=== PATIENT | male | born 1985 | race Caucasian/White ===

== ENCOUNTER 2024-07-22 06:52 | Day surgery (SDC) | payer OTHER ==
[~2024-07-22] VITALS: Ht 172.7 cm; Wt 75.0 kg
[2024-07-22] VITALS (226 sets, daily range): BP systolic 84–171; BP diastolic 54–109
--- NOTE | 2024-07-22 07:20 | NUR ---
Patient arrived to the ANR suite, identification and demographics confirmed. Patient to room 9, AAO, ambulatory, vitals obtained, ID/allergy/fall bands placed, changed into hospital gown, DC hose, and non-slip socks. Procedure and timeline explained for treatment and discharge. All questions answered and the patient presents no concerns at this time.
[2024-07-22] MEDS ORDERED: LACTATED RINGER'S 1,000 ML IV PRN ×3 (07:30→19:00)
[2024-07-22] MEDS ORDERED: PANTOPRAZOLE SODIUM Sesquihydr 40 MG/TAB PO PRN (07:30)
[2024-07-22] MEDS ORDERED: diazePAM 5 MG/TAB PO PRN ×2 (07:30→08:30)
[2024-07-22] MEDS ORDERED: FAMOTIDINE 20 MG/TAB PO PRN (07:30)
[2024-07-22] MEDS ORDERED: SCOPOLAMINE 1.5 MG DIS TD PRN (07:30)
[2024-07-22] MEDS ORDERED: CYANOCOBALAMIN 500 MCG/TAB ( B12) PO PRN (07:30)
[2024-07-22] MEDS ORDERED: cloNIDine HCL 0.1 MG/TAB PO PRN (07:30)
[2024-07-22] MEDS ORDERED: ALBUTEROL SULFATE 2.5 MG VIAL IN PRN (07:30)
--- NOTE | 2024-07-22 07:43 | NUR ---
Dr. Leo telephoned with patient intake information including usage, dose, last dose/time taken and initial vital signs. Patient history and allergies reviewed with MD. Orders received for 10 mg PO Valium and 0.1 mg PO Clonidine now. Will reassess per protocol in 1.5 hours and update MD with assessment and vitals.
[2024-07-22] MEDS ORDERED: ASCORBIC ACID 4,000 MG in SODIUM CHLORIDE 0.9% 1,000 ML IV SCH (08:00)
[2024-07-22 08:29] LABS: BASO% 0.2 % (0-3); EOS% 4.4 % (0-8); HEMOGLOBIN 12.2 g/dl (14.0-18.0); IMMATURE GRANULOCYTES 0.2 % (0.0-5.0); LYMPH% 44.3 % (15-41); MEAN CELL VOLUME 90.9 fL CALC (80.0-100.0); MONO% 4.6 % (2-13); NEUT# 4.2 thou/uL (1.82-7.42); NEUT% 46.3 % (42-76); RED BLOOD COUNT 4.07 mill/uL (4.70-6.10); RED CELL DISTRI WIDTH 12.4 % (11.5-15.5)
[2024-07-22 08:58] LABS: ALBUMIN 4.1 g/dL (3.2-5.0); BILIRUBIN, TOTAL 0.5 mg/dL (0.2-1.3); CREATININE 0.7 mg/dL (0.7-1.3); POTASSIUM 3.8 mmol/l (3.5-5.1); TOTAL PROTEIN 6.5 g/dL (6.3-8.2)
--- NOTE | 2024-07-22 09:37 | NUR ---
Patient resting comfortably in bed. Easily aroused, maintains focus, and drifts back to sleep. No signs of active withdrawal or distress noted at this time. Continuous SPO2, rhythm, and respiratory monitoring initiated. IVF @ 250 mL/HR, room air, VSS.
[2024-07-22] MEDS ORDERED: LIDOCAINE HCL 1% (10MG/ML) 100 MG/10 ML MDV IV PRN (09:55)
[2024-07-22] MEDS ORDERED: MIDAZOLAM HCL 2 MG/2 ML VIAL IV PRN (09:55)
[2024-07-22] MEDS ORDERED: diazePAM 5 MG/TAB VT PRN (09:55)
[2024-07-22] MEDS ORDERED: MAGNESIUM SULFATE HEPTAHYDRATE 100 ML IV PRN (09:55)
[2024-07-22] MEDS ORDERED: cloNIDine HCL 0.1 MG/TAB VT PRN (09:55)
[2024-07-22] MEDS ORDERED: LIDOCAINE HCL 1% (10MG/ML) 100 MG/10 ML MDV VT PRN ×2 (09:55)
[2024-07-22] MEDS ORDERED: cloNIDine HYDROCHLORIDE 100 MCG/ML 10 ML INJ IV PRN (09:55)
[2024-07-22] MEDS ORDERED: DiphenhydrAMINE HCL 50 MG/ML SDV IV PRN (09:55)
[2024-07-22] MEDS ORDERED: PROPOFOL 10 MG/ML 100ML VIAL IV PRN (09:55)
[2024-07-22] MEDS ORDERED: PROPOFOL 100 ML IV PRN (09:55)
[2024-07-22] MEDS ORDERED: SUCCINYLCHOLINE CHLORIDE 20 MG/ML 10ML VIAL IV PRN (09:55)
[2024-07-22] MEDS ORDERED: ROCURONIUM BROMIDE 10 MG/ML 5ML VIAL IV PRN (09:55)
[2024-07-22] MEDS ORDERED: STERILE WATER FOR IRRIGATION 1,000 ML BTL IR PRN (09:55)
[2024-07-22] MEDS ORDERED: ONDANSETRON HCl 4 MG/2 ML SDV IV PRN ×3 (09:55→19:00)
[2024-07-22] MEDS ORDERED: POTASSIUM CHLORIDE 20 MEQ/100 ML BAG IV PRN (09:55)
[2024-07-22] MEDS ORDERED: OCTREOTIDE ACETATE 100 MCG/VIAL SDV SC PRN (09:55)
[2024-07-22] MEDS ORDERED: NALTREXONE HCL 50 MG/TAB VT PRN (09:55)
[2024-07-22] MEDS ORDERED: THIAMINE HCL 100 MG/ML 2ML VIAL IV PRN (09:55)
--- NOTE | 2024-07-22 12:35 | NUR ---
Induction Note Patient to [facility]R procedure room. Time out performed at 1206. Patient placed on monitors, Rafita hugger, bilateral wrist restraints applied for ET tube protection. Versed 5mg given IV push at 1212 Tourniquet applied to right arm Lidocaine 100mg given at 1230 IV push followed by Rocoronium 10mg at 1231 IV push and held for 90 seconds. Propofol bolus of 120mg given at 1233 IV push. Succinylcholine 80mg given IV push at 1234. Smooth intubation with 7.5 ETT. Positive CO2. Positive Auscultation for air exchange. ET tube secured with tape by Dr. Leo 22 @ the lip. Patient placed on ventilator for spontaneous ventilation. Placed on Propofol IV drip at 1235. OG inserted. Positive air on auscultation. Positive gastric content. Stomach washed at this time.
--- NOTE | 2024-07-22 12:45 | NUR ---
OG close note Stomach washed at this time. Naltrexone 50 mg with Clonidine 0.2 mg via OG tube. OG will be clamped for 45 minutes.
--- NOTE | 2024-07-22 13:30 | NUR ---
OG open note OG open at this time. Gastric content draining into drainage bag. OG to drain for 45 minutes. Propofol will be titrated down based on patient.
--- NOTE | 2024-07-22 14:15 | NUR ---
OG close note Stomach washed at this time. Naltrexone 50 mg with Clonidine 0.2 mg via OG tube. OG will be clamped for 45 minutes.
--- NOTE | 2024-07-22 15:45 | NUR ---
OG close note Stomach washed at this time. Naltrexone 50 mg with Clonidine 0.1 mg via OG tube. OG will be clamped for 45 minutes.
[2024-07-22] MEDS ORDERED: NALTREXONE50 MG PO (16:43)
[2024-07-22] MEDS ORDERED: KLONOPIN2 MG PO (16:43)
[2024-07-22] MEDS ORDERED: CLONIDINE0.1 MG PO (16:43)
--- NOTE | 2024-07-22 17:15 | NUR ---
OG close note Stomach washed at this time. Naltrexone 25 mg with Clonidine 0.1 mg via OG tube. OG will be clamped for 45 minutes.
--- NOTE | 2024-07-22 18:45 | NUR ---
OG close note Stomach washed at this time. Valium 10mg via OG tube. OG will be clamped for 20-30 minutes for closing dose.
[2024-07-22] MEDS ORDERED: HALOPERIDOL LACTATE 5 MG/ML SDV IV PRN (19:00)
[2024-07-22] MEDS ORDERED: PROMETHAZINE HCL 25 MG in SODIUM CHLORIDE 0.9% 50 ML IV PRN (19:00)
[2024-07-22] MEDS ORDERED: ACETAMINOPHEN 500 MG TAB PO PRN (19:00)
[2024-07-22] MEDS ORDERED: ACETAMINOPHEN 1,000 MG/100 ML VIAL IV PRN (19:00)
[2024-07-22] MEDS ORDERED: KETOROLAC TROMETHAMINE 30 MG/ML SDV IV PRN (19:00)
[2024-07-22] MEDS ORDERED: PROMETHAZINE HCL 12.5 MG in SODIUM CHLORIDE 0.9% 50 ML IV PRN (19:00)
[2024-07-22] MEDS ORDERED: LORazepam 2 MG/ML IV PRN ×2 (19:00)
--- NOTE | 2024-07-22 19:10 | NUR ---
Extubation note Closing medications given Benadryl 50mg IV push, Decadron 10mg IV push,Magnesium 4 grams IV, Zofran 8mg IV push, Octreotide 100mcg SC. Stomach washed out prior to extubation. Suctioned gastric content. OG removed. Patient extubated. Propofol Discontinued. Wrist restraints removed. Rafita hugger Removed. See ANR Moderate sedate recovery record for further notes and assessment.
--- NOTE | 2024-07-22 19:17 | NUR ---
counted beasley in pt's wallet with primary nurse Jean. $760.00 present
[2024-07-22] MEDS ORDERED: ONDANSETRON4 MG PO (19:23)
--- NOTE | 2024-07-22 19:25 | NUR ---
PHONE CALL PLACED TO PT FRIEND WANDA UPDATE PROVIDED AT THIS TIME. ALL QUESTIONS AND CONCERNS ADDRESSED.
--- NOTE | 2024-07-22 19:40 | NUR ---
Patient to room 288 in no acute distress. Transfer of care to [place], bedside report provided. 2L NC placed per orders, IVF to continue at 100ml/hr. VSS. Patient resting comfortably, no adventitious breath sounds appreciated. Bed alarm set. See chart/EMAR for procedural details and assessments. Handoff of care at the time of this note.
[2024-07-22] MEDS ORDERED: PATIENT' OWN MED CONTROLLED 1 EA DOSE IV PRN (21:00)
--- NOTE | 2024-07-22 21:36 | NUR ---
PT BEGINNING TO WAKE UP, TOSS AND TURN IN BED, HOLLERING "MOM" AND C/O "FEELING VERY SICK" BUT UNABLE TO DESCRIBE SYMPTOMS AT THIS TIME. ADMINSITERED MEDICATION PER EMAR FOR TASHA AND RESTLESSNESS. REPOSITIONED IN BED AND ENCOURAGED REST. BED ALARM ON AND SAFETY PRECAUTIONS IN PLACE. SITTER AT DOORWAY.
[2024-07-22] MEDS ORDERED: cloNIDine HCL 0.1 MG/TAB PO SCH (23:00)
[2024-07-22] MEDS ORDERED: clonazePAM 1 MG/TAB PO PRN (23:00)
--- NOTE | 2024-07-23 00:45 | NUR ---
PT RECEIVED SCHEDULED MEDS PER EMAR AND MED TO ASSIST WITH RESLTESSNESS AND TASHA. MEDICATION HAS BEEN EFFECTIVE AT THIS TIME. PT LAYING IN BED ON LT SIDE RESTING COMFORTABLY, RM AIR. IVF RUNNING PER EMAR. VSS. NO S/S OF DISTRESS. BED ALARM ON AND SAFETY PRECAUTIONS IN PLACE.
[2024-07-23 03:50] VITALS: BP 131/81
[2024-07-23] MEDS ORDERED: clonazePAM 1 MG/TAB PO PRN ×2 (04:00→08:00)
[2024-07-23] MEDS ORDERED: NALTREXONE HCL 50 MG/TAB PO SCH ×2 (04:00→11:00)
[2024-07-23] MEDS ORDERED: cloNIDine HCL 0.1 MG/TAB PO PRN (04:00)
--- NOTE | 2024-07-23 05:28 | NUR ---
PT RECEIVED SCHEDULED 0400 MEDS WELL PAIN MEDICATION PER EMAR. PT C/O BACK PAIN, HOT PACK APPLIED WELL. PT DENIES ANY N/V. PREESENTS MORE ALERT AND ORIENTEED AT THIS TIME. VSS. NO S/S OF DISTRESS. BED ALARM ON AND SAFETY PRECAUTIONS IN PLACE.
[2024-07-23 05:53] LABS: BASO% 0.1 % (0-3); HEMATOCRIT 35.9 % (39.0-50.0); HEMOGLOBIN 12.1 g/dl (14.0-18.0); IMMATURE GRANULOCYTES 0.2 % (0.0-5.0); LYMPH% 7.8 % (15-41); MEAN CORPUSCULAR HGB 30.3 pG CALC (26.0-32.0); MEAN CORPUSCULAR HGB CONC 33.7 g/dL CAL (32.0-36.0); MONO% 1.8 % (2-13); NEUT# 12.41 thou/uL (1.82-7.42); NEUT% 90.1 % (42-76); RED BLOOD COUNT 3.99 mill/uL (4.70-6.10); RED CELL DISTRI WIDTH 12.3 % (11.5-15.5)
[2024-07-23 05:58] LABS: ALBUMIN 4.1 g/dL (3.2-5.0); CREATININE 0.6 mg/dL (0.7-1.3); MAGNESIUM 2.4 mg/dL (1.6-2.3); POTASSIUM 3.8 mmol/l (3.5-5.1); TOTAL PROTEIN 6.5 g/dL (6.3-8.2)
[2024-07-23 05:59] LABS: BILIRUBIN, TOTAL 0.8 mg/dL (0.2-1.3)
[2024-07-23] MEDS ORDERED: PANTOPRAZOLE SODIUM Sesquihydr 40 MG/TAB PO SCH (08:00)
[2024-07-23] MEDS ORDERED: ACETAMINOPHEN 325 MG/TAB PO SCH (08:00)
[2024-07-23] MEDS ORDERED: cloNIDine HCL 0.1 MG/TAB PO SCH ×2 (08:00→11:00)
--- NOTE | 2024-07-23 08:59 | NUR ---
PATIENT A/O X2; ROOM AIR; BREATHING UNLABORED; PATIENT TOSSING AND TURNING IN BED,MEDICATED FOR RESTLESS, IV SITE CLEAN AND INTACT RUNNING WITH LR #@100; PATIENT DOES HAVE SOME WIDEN PUPILS AND YAWNING AND SNEEZING, NOTIFIED PROVIDER AWAITING NEW ORDERS; TOLERATED MEDICATIONS AND BREAKFAST WITH NO ISSUES; WRITTER CHANGED BED LINEN,OLD DRIED BLOOD WAS LINEN; DENIED ANY N/D/V AT THIS TIME; STATED SOME BACK DISCOMFORT, MEDICATED PER EMAR; OFFER WARM PACK; PATIENT WANTED HIS PERSONAL ITEMS INFORMED PATIENT THAT HE CAN NOT GET HIS PERSNAL ITEMS UNTIL DISCHARGE BUT WILL GET HIS PHONE AROUND LUNCH TIME; CALL LIGHT WITHIN REAC; BED IN LOWEST POSTION; VERBALIZED UNDERSTANDING ON HOW TO USE CALL LIGHT; SAFETY MEASURES IN PLACE' BED ALARM ACTIVATED
[2024-07-23] MEDS ORDERED: MAGNESIUM OXIDE 400 MG/TAB PO PRN (09:00)
[2024-07-23] MEDS ORDERED: Cholecalciferol 2,000 UNIT/TAB PO PRN (09:00)
[2024-07-23] MEDS ORDERED: ACETAMINOPHEN 500 MG TAB PO PRN (09:00)
[2024-07-23 10:54] VITALS: BP 112/67
[2024-07-23] MEDS ORDERED: POTASSIUM CHLORIDE 20 MEQ/TAB PO SCH (11:00)
--- NOTE | 2024-07-23 11:00 | NUR ---
medicated patient with naltrexone 25mg, clondine 0.1 and potassium 20 MEQ per verbal order from Dr. Leo
--- NOTE | 2024-07-23 11:19 | NUR ---
patient states that he is getting more depressed the more he stays here, informed patient that its a process and Poc for today, if he wants to he can get up and move and walk around in the hallway if he would like, the provider will be here soon to see how he is doing, informed patient that discharge is normally around [id number] this afternoon, encouraged patient to try to eat lunch, walk or rest if he would like to
--- NOTE | 2024-07-23 12:55 | NUR ---
cornelio is resting back in bed, writter ambulated patient around hallway with stand by assit, iv site clean and intact saline locked; no s.s of distress; patient refused to take a shower, provider notified; personal clothes, shoes, and jacket and cellphone other personal items still in anr locker; no s.s of distress; call light within reach;bed in lowest postion;safety measuresin place
--- NOTE | 2024-07-23 13:30 | NUR ---
patient tolerated discharge medications with no issues
--- NOTE | 2024-07-23 14:50 | NUR ---
IV site discontinued, cath intact. No edema , no redness, voices no discomfort. Discharge instructions given. Patient verbalizes understanding of same. Discharged in stable condition via Ambulatory to Home with friend. All belongings sent with pt.
== END 2024-07-23 14:50 | disposition home or self-care (01) | DRG 897 ==
LOC: MS2 06:52 → ANR 06:52 → MS2 06:53 → ANR 09:00
PROVIDERS: ATTEND Anesthesiology
DX: F11.20 Opioid dependence, uncomplicated (principal)
CPT/HCPCS: J1100; J1200; J1630; J2060; J2354; J2405; J2704; J3411; J3475; J3480; J3490